=== PATIENT | female | born 1940 | race Caucasian/White ===

== ENCOUNTER 2018-04-28 14:42 | Outpatient (CLI) | payer MEDICARE | END 2018-04-28 23:59 | disposition home or self-care (01) | LOC: VAS 14:42 | PROVIDERS: ATTEND Pediatrics Sports Medicine | DX: R59.0 Localized enlarged lymph nodes (principal); R60.0 Localized edema; M79.661 Pain in right lower leg; Z87.891 Personal history of nicotine dependence | CPT/HCPCS: 93971 ==